=== PATIENT | female | born 1960 | race Caucasian/White ===

== ENCOUNTER 2019-12-10 18:30 | Emergency (ER) | payer OTHER ==
[2019-12-10] MEDS ORDERED: SODIUM CHLORIDE 0.9% 1,000 ML IV STA (18:45)
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
[2019-12-10 19:05] LABS: Basophils % (A) 1 %; Eosinophils # (A) 0.1 k/uL (0-0.7); Eosinophils % (A) 1 %; HCT 33.7 % (34.0-46.0); HGB 11.4 gm/dL (11.4-16.0); Lymphocytes % (A) 17 %; MCH 28.8 pg (25.0-35.0); MCHC 33.9 g/dL (31.0-37.0); MCV 84.9 fL (80.0-100.0); Mean Platelet Volume 7.3; Monocytes # (A) 0.3 k/uL (0-1.0); Monocytes % (A) 4 %; Neutrophils # (A) 4.6 k/uL (1.3-7.7); Neutrophils % (A) 76 %; Platelet Count 206 k/uL (150-450); RBC 3.97 m/uL (3.80-5.40); RDW 12.7 % (11.5-15.5)
[2019-12-10 19:15] LABS: Albumin 4.4 g/dL (3.5-5.0); Total Bilirubin 0.3 mg/dL (0.2-1.3)
[2019-12-10 19:18] LABS: INR 0.9 (<1.2); Partial Thromboplastin Time 29.9 sec (22.0-30.0); Prothrombin Time 9.5 sec (9.0-12.0)
--- NOTE | 2019-12-10 19:37 | XR ---
EXAMINATION TYPE: XR pelvis AP view DATE OF EXAM: 12/10/2019 COMPARISON: NONE HISTORY: Pain TECHNIQUE: FINDINGS: The pelvic ring is intact. Proximal femurs are intact. There is right-sided double-J ureter al stent. Sacroiliac joints are intact. IMPRESSION: No acute abnormality of the pelvis.
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
[2019-12-10 20:46] VITALS: RESP 18
[2019-12-10 21:03] LABS: Appearance,Urine Clear (Clear); Bilirubin,Urine Negative (Negative); Blood,Urine Moderate (Negative); Color,Urine Colorless; Glucose,Urine (UA) Negative (Negative); Ketones,Urine Negative (Negative); Leukocyte Esterase,Urine Small (Negative); Nitrite,Urine Negative (Negative); Protein,Urine Negative (Negative); RBC,Urine 11 /hpf (0-5); Specific Gravity,Urine 1.005 (1.001-1.035); Urobilinogen,Urine <2.0 mg/dL (<2.0); WBC,Urine 3 /hpf (0-5)
[2019-12-10 21:15] LABS: Amphetamine Screen,Urine Not Detected (NotDetected); Barbiturate Screen,Urine Not Detected (NotDetected); Benzodiazepines Screen,Urine Not Detected (NotDetected); Cocaine Screen,Urine Detected (NotDetected); Methadone Screen, Urine Not Detected (NotDetected); Opiate Screen,Urine Not Detected (NotDetected); Oxycodone Screen, Urine Not Detected (NotDetected); Phencyclidine Screen,Urine Not Detected (NotDetected); Tricyclic Antidepressant,Urine Not Detected (NotDetected); Urn Cannabinoid Scrn Detected (NotDetected)
[2019-12-11 00:06] VITALS: BP 136/76; PULSE 79; TEMP 98
== END 2019-12-11 00:05 | disposition home or self-care (01) ==
LOC: EC 18:30
DX: S20.219A Contusion of unspecified front wall of thorax, initial encounter (principal); F10.129 Alcohol abuse with intoxication, unspecified; I10 Essential (primary) hypertension; F31.9 Bipolar disorder, unspecified; Z79.899 Other long term (current) drug therapy; Z85.41 Personal history of malignant neoplasm of cervix uteri; Y90.6 Blood alcohol level of 120-199 mg/100 ml; V47.5XXA Car driver injured in collision with fixed or stationary object in traffic accident, initial encounter; Y92.410 Unspecified street and highway as the place of occurrence of the external cause
CPT/HCPCS: 36415; 93005; 86900; 86901; 80053; 82550; 84484; 85025; 85610; 85730; 86850; 81001; 80306; 80320; 72170; 71045; 72125; 70450; 71260; 74177; 99285; 96360; 96361; Q9967

== ENCOUNTER 2019-12-11 14:17 | Emergency (ER) | payer OTHER ==
[2019-12-11 14:26] VITALS: RESP 18; TEMP 98.2
[2019-12-11] MEDS ORDERED: PROPARACAINE 0.5% OPHTH DROPS 15 ML BTL BOTH EYES STA (14:54)
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
[2019-12-11 16:01] VITALS: BP 165/98; PULSE 80
== END 2019-12-11 16:51 | disposition home or self-care (01) ==
LOC: EC 14:17
DX: H33.22 Serous retinal detachment, left eye (principal); H54.61 Unqualified visual loss, right eye, normal vision left eye; I10 Essential (primary) hypertension; F31.9 Bipolar disorder, unspecified; Z79.899 Other long term (current) drug therapy; Z85.41 Personal history of malignant neoplasm of cervix uteri
CPT/HCPCS: 99284

== ENCOUNTER → 2024-04-25 | Outpatient (CLI) | payer OTHER ==
--- NOTE | 2024-04-25 13:17 | BD ---
EXAMINATION TYPE: Axial Bone Density DATE OF EXAM: 04/25/2024 CLINICAL HISTORY: 63 years old Female. ICD-10 CODE: N95.9 MENOPAUSAL AND PERIMENOPAUSAL DISORDER Height: 63 Weight: 158.5 FRAX RISK QUESTIONS: Alcohol (3 or more units per day): no Family History (Parent hip fracture): mother Glucocorticoids (More than 3mos): no (Ex: prednisone, prednisolone, methylprednisolone, dexamethasone, and hydrocortisone). History of Fracture in Adulthood: femur Secondary Osteoporosis: 1. Type 1 Diabetes: no 2. Hyperthyroidism: no 3. Menopause before 45: no 4. Malnutrition: no 5. Chronic liver disease: no Rheumatoid Arthritis: no Current Tobacco Use: no RISK FACTORS HISTORY OF: Hip Fracture (Right/Left): no Spine Fracture: no History of Wrist Fracture: no Surgery to Spine/Hip(right/left)/Wrist (right/left): no MEDICATIONS: Thyroid Medications: no Osteoporosis Medications: no EXAM MEASUREMENTS: Bone mineral densitometry was performed using the Stocard System. Bone mineral density as measured about the Lumbar spine is: ----- L1-L4(G/cm2): 1.324 T Score Values are as follows: ----- L1: 0.0 ----- L2: 0.9 ----- L3: 2.3 ----- L4: 1.1 ----- L1-L4: 1.2 Z Score Values are as follows: ----- L1: 1.3 ----- L2: 2.2 ----- L3: 3.5 ----- L4: 2.3 ----- L1-L4: 2.4 Baseline Study Bone mineral density about the R hip (g/cm2): 0.883 Bone mineral density about the L hip (g/cm2): 0.784 T Score values are as follows: -----R Neck: -0.9 -----L Neck: -1.5 -----R Total: -1.0 -----L Total: -1.8 Z Score values are as follows: -----R Neck: 0.4 -----L Neck: -0.2 -----R Total: 0.0 -----L Total: -0.8 Baseline Study FRAX%s: The graph provided illustrates a 26.9% chance for a major osteoporotic fx and a 1.5% chance f or the hips probability for fx in 10 years time. IMPRESSION: Osteopenia (T Score between -2.5 and -1). There is slightly increased risk of fracture and the patient may be considered for treatment. Re-Screen 2-5 years. NOTE: T-SCORE=SD OF THE YOUNG ADULT MEAN.
--- NOTE | 2024-05-21 13:20 | MM ---
Reason for Exam: Screening (asymptomatic). Patient History: First Full-Term at age 19. Sister had ovarian cancer. Risk Values: Justine 5 year model risk: 1.0%. NCI Lifetime model risk: 4.4%. Tissue Density: There are scattered areas of fibroglandular density. Findings: Analyzed By CAD. Right breast: There is no suspicious group of microcalcifications or new suspicious mass. Left breast: There is no suspicious group of microcalcifications or new suspicious mass. Overall Assessment: Negative, BI-RAD 1 Management: Screening Mammogram of both breasts in [address] [facility] will attempt to contact patient to return for supplemental views and ultrasound if indicated. Patient should continue monthly self-breast exams. A clinical breast exam by your physician is recommended on an annual basis. This exam should not preclude additional follow-up of suspicious palpable abnormalities. Note on Justine scores and lifetime risk: 1. A Justine score greater than 3% is considered moderate risk. If this is the case, consider specialist referral to assess eligibility for a risk reducing agent. 2. If overall lifetime risk for the development of breast cancer is 20% or higher, the patient may qualify for future screening with alternating mammogram and breast MRI. Electronically signed and approved by: Go Ruano DO
== END | disposition home or self-care (01) ==
LOC: RADMAMWWP 12:08
PROVIDERS: ATTEND Internal Medicine Pulmonary Disease
DX: Z12.31 Encounter for screening mammogram for malignant neoplasm of breast (principal); N95.9 Unspecified menopausal and perimenopausal disorder; Z80.41 Family history of malignant neoplasm of ovary; R92.323 Mammographic fibroglandular density, bilateral breasts
CPT/HCPCS: 77067; 77080

== ENCOUNTER 2025-01-25 08:37 | Observation (INO) | payer OTHER ==
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
[2025-01-25] MEDS: SODIUM CHLORIDE 0.9% 1,000 ML IV ONE (09:03)
[2025-01-25] MEDS: ONDANSETRON 4 MG/2 ML VIAL IVP STA (09:05)
[2025-01-25] MEDS: HYDROmorphone 0.5 MG/0.5 ML SYRINGE IVP STA (09:06)
[2025-01-25] MEDS: KETOROLAC 15 MG/ML 1 ML VIAL IVP STA (09:06)
[2025-01-25 09:30] LABS: Basophils # (A) 0.05 10*3/uL (0.00-0.10); Basophils % (A) 0.7 %; Eosinophils # (A) 0.22 10*3/uL (0.04-0.35); Eosinophils % (A) 2.9 %; HCT 35.8 % (37.2-46.3); HGB 11.6 g/dL (12.0-15.0); Lymphocytes # (A) 1.23 10*3/uL (0.90-5.00); Lymphocytes % (A) 16.4 %; MCH 27.7 pg (27.0-32.0); MCHC 32.4 g/dL (32.0-37.0); MCV 85.4 fL (80.0-97.0); Mean Platelet Volume 10.5 fL (9.5-12.2); Neutrophils # (A) 5.67 10*3/uL (1.80-7.70); Neutrophils % (A) 75.9 %; Platelet Count 216 10*3/uL (140-440); RBC 4.19 10*6/uL (4.10-5.20); RDW 13.7 % (11.5-14.5); WBC 7.48 10*3/uL (4.50-10.00)
[2025-01-25 09:37] LABS: Appearance,Urine Cloudy (Clear); Bacteria,Urine Many /hpf; Bilirubin,Urine Negative (Negative); Blood,Urine Large (Negative); Color,Urine Light Yellow; Glucose,Urine (UA) Negative (Negative); Ketones,Urine Negative (Negative); Leukocyte Esterase,Urine Large (Negative); Mucus,Urine Rare /hpf; Nitrite,Urine Positive (Negative); PH, Urine 6.5 (5.0-8.0); Protein,Urine 2+ (Negative); RBC,Urine >182 /hpf (0-5); Specific Gravity,Urine 1.021 (1.001-1.035); Squamous Epithelial Cell,Urine 3 /hpf (0-4); Urobilinogen,Urine <2.0 mg/dL (<2.0); WBC,Urine >182 /hpf (0-5)
[2025-01-25 09:44] LABS: ALT 13 U/L (4-34); AST 20 U/L (14-36); African American GFR (CKD) 42 (>60 ml/min/1.73 sqM); Albumin 4.4 g/dL (3.5-5.0); Alkaline Phosphatase 66 U/L (38-126); Amylase 68 U/L (30-110); Anion Gap 9 mmol/L; Blood Urea Nitrogen 45 mg/dL (7-17); Calcium 9.2 mg/dL (8.4-10.2); Carbon Dioxide 23 mmol/L (22-30); Chloride 108 mmol/L (98-107); Glucose 97 mg/dL (74-99); Lipase 312 U/L (23-300); Non-African American GFR(CKD) 36 (>60 ml/min/1.73 sqM); Potassium 4.9 mmol/L (3.5-5.1); Sodium 140 mmol/L (137-145); Total Bilirubin 0.4 mg/dL (0.2-1.3); Total Protein 7.3 g/dL (6.3-8.2)
--- NOTE | 2025-01-25 10:29 | US ---
EXAMINATION TYPE: US gallbladder DATE OF EXAM: 01/25/2025 COMPARISON: CT 2019 CLINICAL INDICATION: Female, 64 years old with history of RUQ abd pain; RUQ pain. right nephrectomy TECHNIQUE: Grayscale and color Doppler imaging of the right upper quadrant was performed. FINDINGS: EXAM MEASUREMENTS: Liver Length: 16.7 cm Gallbladder Wall: 0.3 cm CBD: 0.6 cm Right Kidney: Surgically absent MEDICARE SALES REPRESENTATIVE NOTES:*Limitations due to overlying bowel gas Pancreas: Obscured by bowel gas Liver: appears wnl Gallbladder: Prominent = 10.6cm Evidence for sonographic Casillas's sign: no CBD: upper limits of normal Right Kidney: Surgically absent Visualized portion of the pancreas unremarkable. IMPRESSION: No gallstones or sonographic evidence for acute cholecystitis [facility], , 01/25/2025 10:26 AM
[2025-01-25] MEDS ORDERED: ACETAMINOPHEN TAB 325 MG TAB PO PRN (11:13)
[2025-01-25] MEDS ORDERED: NALOXONE 0.4 MG/ML 1 ML VIAL IV PRN (11:13)
[2025-01-25] MEDS ORDERED: ONDANSETRON 4 MG/2 ML VIAL IVP PRN (11:13)
[2025-01-25] MEDS: SODIUM CHLORIDE 0.9% 1,000 ML IV SCH (14:41)
[2025-01-25] MEDS: HYDROmorphone 0.5 MG/0.5 ML SYRINGE IVP PRN (15:37)
--- NOTE | 2025-01-26 13:35 | P.HPIM ---
History of Present Illness Patient is 64-year-old female came in for abdominal pain radiating from the right flank to the right groin area although patient does not have any kidney there patient had a nephrectomy in the past. Patient denied any symptoms of UTI but urine is significantly abnormal urine is positive for gram-negative bacilli does not have any fever and leukocytosis patient's pain resolved at this time patient had an ultrasound of the gallbladder did not show any gallstones or cholecystitis. Patient was started on Rocephin. REVIEW OF SYSTEMS: All other systems are negative except those mentioned in the HPI PHYSICAL EXAMINATION: GENERAL: The patient is alert and oriented x3, not in any acute distress. Well developed, well nourished. HEENT: Pupils are round and equally reacting to light. EOMI. No scleral icterus. No conjunctival pallor. Normocephalic, atraumatic. No pharyngeal erythema. No thyromegaly. CARDIOVASCULAR: S1 and S2 present. No murmurs, rubs, or gallops. PULMONARY: Chest is clear to auscultation, no wheezing or crackles. ABDOMEN: Soft, nontender, nondistended, normoactive bowel sounds. No palpable organomegaly. MUSCULOSKELETAL: No joint swelling or deformity. EXTREMITIES: No cyanosis, clubbing, or pedal edema. NEUROLOGICAL: Gross neurological examination did not reveal any focal deficits. SKIN: No rashes. Assessment and plan Possibility of urinary tract infection patient will continue on Rocephin awaiting urine cultures once we get the urine cultures patient will be discharged on total 3 days of antibiotic. - Right lower quadrant abdominal pain and flank pain etiology is not clear her pain resolved because of which I am not doing any further imaging at this time. -Acute renal failure serum creatinine went up from 1.2 baseline to 1.5. Continue with IV fluids possibly prerenal azotemia repeat electrolytes tomorrow Hypertension - History of cervical cancer in the past - Depression for above-mentioned chronic medical problems patient will be resumed on appropriate home medications DVT prophylaxis: Early ambulation Past Medical History Past Medical History: Cancer, Hypertension Additional Past Medical History / Comment(s): cervical CA History of Any Multi-Drug Resistant Organisms: None Reported Additional Past Surgical History / Comment(s): cerival sx Past Anesthesia/Blood Transfusion Reactions: No Reported Reaction Past Psychological History: Bipolar, Depression Smoking Status: Current some day smoker Past Alcohol Use History: Occasional Past Drug Use History: Marijuana Medications and Allergies Home Medications Medication Instructions Recorded Confirmed Type lisinopriL [Zestril] 20 mg PO DAILY 12/10/19 01/25/25 History Atorvastatin [Lipitor] 20 mg PO DAILY 01/25/25 01/25/25 History Folic Acid 1 mg PO DAILY 01/25/25 01/25/25 History Vibegron [Gemtesa] 75 mg PO DAILY 01/25/25 01/25/25 History amLODIPine [Norvasc] 5 mg PO DAILY 01/25/25 01/25/25 History Allergies Allergy/AdvReac Type Severity Reaction Status Date / Time No Known Allergies Allergy Verified 01/25/25 10:39 Physical Exam Vitals: Vital Signs Temp Pulse Pulse Resp BP BP Pulse Ox 01/26/25 07:38 97.9 F 62 16 108/69 98 01/26/25 03:08 62 105/66 01/26/25 01:37 98.3 F 66 19 98/63 98 01/26/25 00:50 16 01/25/25 21:39 14 01/25/25 19:38 98.2 F 64 100/61 98 01/25/25 15:53 98.4 F 65 20 135/78 95 01/25/25 15:08 98.9 F 65 16 111/71 98 Intake and Output 01/25/25 01/26/25 01/26/25 22:59 06:59 14:59 Intake Total 390 Balance 390 Intake: Intake, IV Titration 150 Amount Sodium Chloride 0.9% 1, 150 000 ml @ 75 mls/hr IV . [id number] [facility] Rx#:[id number] Oral 240 Other: Voiding Method Toilet # Voids 1 Weight 68.039 kg Results CBC & Chem 7: 01/25/25 08:58 01/25/25 08:58 Labs: Microbiology - Last 24 Hours (Table) 01/25/25 09:03 Urine Culture - Preliminary Urine,Voided Gram Neg Bacilli Thrombosis Risk Factor Assmnt - Choose All That Apply Any of the Below Risk Factors Present?: No Each Risk Factor Represents 2 Points: Age 61-74 years Other congenital or acquired thrombophilia - If yes, enter type in comment: No Thrombosis Risk Factor Assessment Total Risk Factor Score: 2 Thrombosis Risk Factor Assessment Level: Low Risk
[2025-01-27 02:39] VITALS: RESP 16
[2025-01-27] MEDS: FOLIC ACID 1 MG TAB PO SCH (07:58)
[2025-01-27] MEDS: ATORVASTATIN 20 MG TAB PO SCH (07:58)
[2025-01-27 08:57] VITALS: BP 119/78; PULSE 64; TEMP 98.5
[2025-01-27 11:28] LABS: African American GFR (CKD) 68 (>60 ml/min/1.73 sqM); Anion Gap 8 mmol/L; Blood Urea Nitrogen 23 mg/dL (7-17); Calcium 9.8 mg/dL (8.4-10.2); Carbon Dioxide 24 mmol/L (22-30); Chloride 107 mmol/L (98-107); Glucose 76 mg/dL (74-99); Non-African American GFR(CKD) 59 (>60 ml/min/1.73 sqM); Potassium 4.7 mmol/L (3.5-5.1); Sodium 139 mmol/L (137-145)
== END 2025-01-27 13:28 | disposition home or self-care (01) ==
LOC: EC 08:37 → 4SSUR 11:44
PROVIDERS: ADMIT Internal Medicine; ATTEND Internal Medicine
DX: N17.9 Acute kidney failure, unspecified (principal); R82.71 Bacteriuria; Z90.5 Acquired absence of kidney; R10.31 Right lower quadrant pain; I10 Essential (primary) hypertension; F32.A Depression, unspecified; F17.200 Nicotine dependence, unspecified, uncomplicated; Z79.899 Other long term (current) drug therapy; Z85.41 Personal history of malignant neoplasm of cervix uteri; Z87.828 Personal history of other (healed) physical injury and trauma
CPT/HCPCS: 96376 ×2; 96361 ×3; 96365; 96375; 99285; 36415; 93005; 80053; 80048; 82150; 83605; 83690; 85025; 81001; 87040; 87086; 87077; 87186; 76705; G0378 ×3; J2405; J0696 ×3; J1885; J1171 ×2